=== PATIENT | female | born 1955 | race Caucasian/White ===

== ENCOUNTER 2019-09-15 14:53 | IRF | payer BC, SELFPAY ==
[2019-09-15 14:52] VITALS: BP 127/68; PULSE 74; RESP 18; TEMP 36.6; O2SAT 96
--- NOTE | 2019-09-15 15:24 | ADMGEN ---
This patient, Karely Perez, was admitted to [facility] Room 222-01. Patient/family oriented to hospital policies and general routines including ID bracelet, bed and alarms, visiting hours, pain management, procedures, bathroom and other care routines, personal items, smoking policy, room service/diet, and visiting hours. Valuables list has been completed. Information on how to activate the Rapid Response Team has been discussed. Patient/Family are encouraged to report perceived risks to care and to ask questions if they do not understand what they are told or what they should do.
[2019-09-15 16:09] VITALS: BMI 42.7
[2019-09-15] MEDS: POLYSACCHARIDE IRON COMPLEX 150 MG CAPSULE PO (17:10)
[2019-09-15] MEDS: levETIRAcetam 500 MG TABLET PO (21:12)
[2019-09-15] MEDS: SENNA/DOCUSATE SODIUM TABLET 2 TAB PO (21:12)
[2019-09-15] MEDS: MELATONIN 5 MG TABLET PO (21:12)
[2019-09-15] MEDS: DEXAMETHASONE 4 MG TABLET PO (21:12)
[2019-09-15 22:00] VITALS: BP 137/68; PULSE 68; RESP 18; TEMP 36.4; O2SAT 94
[2019-09-16 04:50] LABS: Basophils Percent Auto 0.4 % (0.2-1.2); Eosinophils Percent Auto 0.1 % (0-4.4); Hematocrit 40.5 % (37.0-47.0); Hemoglobin 13.4 g/dL (12.0-15.0); Immature Platelet Fraction Pct 4.2 % (0.9-11.2); Lymphocytes Absolute Auto 0.68 K/mm3 (0.9-3.2); Mean Corpuscular HGB Conc 33.1 g/dl (32-36); Mean Corpuscular Hemoglobin 26.3 pg (26-34); Mean Corpuscular Volume 79.6 fl (80-100); Mean Platelet Volume 9.7 fl (7.4-10.4); Monocytes Absolute Auto 0.5 K/mm3 (0.1-0.6); Monocytes Percent Auto 6.5 % (2.6-8.5); Neutrophils Absolute Auto 6.1 K/mm3 (1.3-6.7); Platelet Count Result 79 k/mm3 (150-375); Red Blood Count 5.09 M/mm3 (4.2-5.4); Red Cell Distribution Width 18.1 % (11.5-14.5); White Blood Count 7.6 K/mm3 (4.5-10.0)
[2019-09-16 05:10] LABS: Blood Urea Nitrogen 22 mg/dL (7-17); Calcium 8.3 mg/dL (8.4-10.2); Carbon Dioxide 22 mmol/L (22-30); Chloride 103 mmol/L (98-107); Estimated CRCL calculation 76 ml/min; Estimated Glomerular Filt Rate > 60; Glucose 133 mg/dL (65-105); Potassium 3.8 mmol/L (3.4-5.0); Sodium 134 mmol/L (137-145)
[2019-09-16] MEDS: DEXAMETHASONE 4 MG TABLET PO ×3 (05:57→21:26)
[2019-09-16] MEDS: LEVOTHYROXINE SODIUM 112 MCG TABLET PO (05:57)
[2019-09-16 06:00] VITALS: BP 130/79; PULSE 68; RESP 18; TEMP 36.6; O2SAT 97
[2019-09-16] MEDS: FAMOTIDINE 20 MG TABLET PO (08:26)
[2019-09-16] MEDS: OXYBUTYNIN CHLORIDE 5 MG TABLET PO (08:26)
[2019-09-16] MEDS: POLYSACCHARIDE IRON COMPLEX 150 MG CAPSULE PO ×2 (08:26→17:34)
[2019-09-16] MEDS: levETIRAcetam 500 MG TABLET PO ×2 (08:26→20:39)
[2019-09-16] MEDS: SENNA/DOCUSATE SODIUM TABLET 2 TAB PO ×2 (08:26→20:38)
[2019-09-16] MEDS: AMLODIPINE BESYLATE 5 MG TABLET PO (08:27)
[2019-09-16 14:00] VITALS: BP 127/81; PULSE 77; RESP 18; TEMP 37; O2SAT 97
--- NOTE | 2019-09-16 19:49 | REHAB_ITS ---
DATE OF SERVICE: 63 years old right-handed female has been admitted to acute rehab of [facility] with the primary rehab impairment category of brain dysfunction. 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 HISTORY OF PRESENT ILLNESS: 67 years old right-handed female with a past medical history of UTI, hypothyroidism, iron deficiency anemia, and glioblastoma multiforme of frontal lobe for which she is being followed by Dr. Estrada, underwent a right frontotemporal craniotomy for resection in June [address] Zayas at [facility]. Subsequently, she received radiation, Temodar treatment, which was completed in August 2018 and now she is on oral Temodar. Brain MRI done on September 02, 2019, was notable for the progressive glioblastoma multiforme at the prior site that is 2.3 cm x 2 cm x 1.9 cm, associated with mild vasogenic edema. She was admitted to [facility] and was underwent spinal MRI on 09/04, which revealed mild chronic compression fracture of T11 and mild thoracic disk degeneration without spinal canal stenosis or cord compression. Due to progressive disease shown on the MRI, she was transferred to [facility] on 09/07/2019, and was admitted for the worsening weakness and slurred speech in the setting of the progressive glioblastoma multiforme. Neurosurgical and radiation oncology consultations were obtained. Neurosurgical service started her on IV dexamethasone 4 mg q.6 hours and started the weaning process on 09/12/2019. She was discharged to rehab on 4 mg twice a day p.o. Oncology held Temodar during this admission. The Neuro-Oncology tumor Board met on 09/11/2019 and determined the MRI finding to be treatment effect at this time. They recommended followup MRI of the brain per brain tumor protocol and to follow up with the primary radiation oncologist Dr. Lora at [facility]. Chemical DVT prophylaxis was on hold for Neurosurgery. Physical examination continue to reveal weakness in both lower extremities with impaired balance and impaired gross motor control. Therapy was started on the acute care facility and patient was transferred to us from [facility] on 09/15/2019. The patient has had no major surgery in the 100 days prior to admission. She has had no falls in the past year and she has had no fall with injury in the past year as well. PAST MEDICAL HISTORY: 1. Glioblastoma multiforme of the frontal lobe. 2. Hypertension. 3. Hypercholesterolemia. 4. Thyroid disease. PAST SURGICAL HISTORY: 1. Breast biopsy. 2. Bilateral total hip arthroplasty in 2016 and 2018. 3. Right temporal tumor excision, craniotomy. SOCIAL HISTORY: Never been a smoker, never been drug user and never drinking alcohol. FAMILY HISTORY: Mother has a heart disease. Father has heart disease as well. PRIOR LEVEL OF FUNCTION: Eating was independent so as the oral care, toileting hygiene, shower, bathing, upper body, lower body, footwear, rolling left and right, sit to lying, lying to sitting, sit to stand, bed to chair, toilet transfer. She was previously ambulating independently with no device for 999 feet and she was previously using wheelchair not related. She was able to complete 13 steps independently. CURRENT LEVEL OF FUNCTION: She is independent in eating. She requires partial assistance for the oral care, toileting hygiene, bathing, shower, upper body, lower body, footwear, rolling left and right, sit to lying, lying to sitting, sit to stand, bed-chair to chair, toilet transfer. The patient has walked 50 feet partial assistance with rolling walker. Wheelchair was not tested and stairs were not tested. GOALS: Our therapist will evaluate the patient establish the goal, however, upon pre-
[2019-09-16] MEDS: MELATONIN 5 MG TABLET PO (20:39)
[2019-09-16 22:00] VITALS: BP 125/75; PULSE 88; RESP 18; TEMP 36.4; O2SAT 97
[2019-09-17] MEDS: DEXAMETHASONE 4 MG TABLET PO ×3 (06:01→21:11)
[2019-09-17] MEDS: LEVOTHYROXINE SODIUM 112 MCG TABLET PO (06:01)
[2019-09-17 06:42] VITALS: BP 136/76; PULSE 64; RESP 18; TEMP 36.4; O2SAT 98
[2019-09-17] MEDS: ONDANSETRON HCL ODT 4 MG TABLET 8 MG PO (09:33)
[2019-09-17] MEDS: OXYBUTYNIN CHLORIDE 5 MG TABLET PO (09:57)
[2019-09-17] MEDS: AMLODIPINE BESYLATE 5 MG TABLET PO (09:57)
[2019-09-17] MEDS: levETIRAcetam 500 MG TABLET PO ×2 (09:57→21:11)
[2019-09-17] MEDS: POLYSACCHARIDE IRON COMPLEX 150 MG CAPSULE PO ×2 (09:57→18:06)
[2019-09-17] MEDS: FAMOTIDINE 20 MG TABLET PO (09:57)
[2019-09-17 09:58] VITALS: BP 139/82; PULSE 85
--- NOTE | 2019-09-17 11:57 | WPDNEURORHBP ---
Subjective Date/time seen: 09/17/19 11:57 Review of Systems Review of Systems: All systems reviewed & are unremarkable except as noted in HPI and below Functional Status Ambulation Ability Ability to Ambulate 10 Feet: Contact Guard Ability to Ambulate 50 Feet With 2 Turns: Contact Guard Ability to Ambulate 150 Feet: Standby Assistance Ambulation Assistive Devices: Walker, Wheeled Transfers Ability Ability to Transfer In/Out of Chair: Standby Assistance Exam Const: General: cooperative, comfortable and no acute distress Nutritional Appearance: average body habitus Orientation/consciousness: patient oriented x3 HENMT: Head: normal to inspection (s/p craniotomy) Mouth: Yes Normal oral and palatal mucosa present Eyes: General: appearance normal, both eyes and all related structures Pupils: Equal, round and reactive pupils present EOM: EOMs intact bilaterally Neck: Neck: full ROM Resp: Auscultation: clear to auscultation bilaterally Cardio: Rate: regular rate Rhythm: regular rhythm Skin: Wounds: wounds noted Neuro: Cranial nerves: Yes CN's II-XII intact bilaterally Motor exam (neuro): 5/5 motor strength present throughout (4/5) Deep tendon reflexes (DTR's): Right triceps reflex intensity grade: 2+, Left triceps reflex intensity grade: 2+, Rt Biceps (C5, C6): 2+, Left biceps reflex intensity grade: 2+, Right brachioradialis reflex intensity grade: 2+, Left brachioradialis reflex intensity grade: 2+, Right patellar reflex intensity grade: 2+, Left patellar reflex intensity grade: 2+, Right ankle reflex intensity grade: 2+ and Left ankle reflex intensity grade: 2+ Objective Data Vital Signs Vital Signs: Vital Signs - 24 hr 09/16/19 14:00 09/16/19 22:00 09/17/19 06:42 Temperature 37.0 C 36.4 C 36.4 C Pulse Rate 77 88 64 Respiratory Rate 18 18 18 Blood Pressure 127/81 125/75 136/76 Pulse Oximetry 97 97 98 09/17/19 09:58 Temperature Pulse Rate 85 Respiratory Rate Blood Pressure 139/82 Pulse Oximetry Intake/Output Intake/Output: Intake & Output 09/14/19 09/15/19 09/16/19 09/17/19 23:59 23:59 23:59 23:59 Intake Total 120 780 120 Balance 120 780 120 Meds/Results Medications: Active Medications Generic Name Dose Route Start Last Admin Trade Name Ann PRN Reason Stop Dose Admin Acetaminophen 650 mg 09/15/19 15:29 Tylenol Tablet PO Q6H PRN Headache Amlodipine Besylate 5 mg 09/16/19 09:00 09/17/19 09:57 Norvasc PO 5 mg DAILY CHUY Administration Dexamethasone 4 mg 09/15/19 15:30 09/17/19 06:01 Dexamethasone Po PO 4 mg Q8HR CHUY Administration Famotidine 20 mg 09/16/19 09:00 09/17/19 09:57 Pepcid PO 20 mg DAILY CHUY Administration Levetiracetam 500 mg 09/15/19 21:00 09/17/19 09:57 Keppra Tablet PO 500 mg Q12HR CHUY Administration Levothyroxine Sodium 112 mcg 09/16/19 06:30 09/17/19 06:01 Synthroid PO 112 mcg DAILY@0630 CHUY Administration Melatonin 5 mg 09/15/19 21:00 09/16/19 20:39 Melatonin PO 5 mg HS CHUY Administration Ondansetron HCl 8 mg 09/15/19 16:05 09/17/19 09:33 Zofran Odt PO 8 mg Q8H PRN Administration Nausea Oxybutynin Chloride 5 mg 09/16/19 09:00 09/17/19 09:57 Ditropan PO 5 mg DAILY CHUY Administration Polyethylene Glycol 17 gm 09/15/19 15:29 Miralax PO DAILY PRN Constipation Polysaccharide Iron Complex 150 mg 09/15/19 17:00 09/17/19 09:57 Niferex-150 PO 150 mg BID CHUY Administration Senna/Docusate Sodium 2 tab 09/15/19 21:00 09/17/19 11:56 Senokot S PO Not Given Q12HR CHUY Progress Note: A&P Assessment and Plan (1) Paraparesis: Code(s): G82.20 - Paraplegia, unspecified Status: Acute (2) Accelerated hypertension: Code(s): I10 - Essential (primary) hypertension Status: Acute (3) Glioblastoma multiforme of frontal lobe: Code(s): C71.1 - Malignant neoplasm of frontal lobe S
[2019-09-17 14:00] VITALS: BP 119/72; PULSE 83; RESP 20; TEMP 36.7; O2SAT 97
[2019-09-17] MEDS: MELATONIN 5 MG TABLET PO (21:12)
[2019-09-17 21:18] VITALS: BP 142/82; PULSE 69; RESP 20; TEMP 36.2; O2SAT 96
[2019-09-18] MEDS: DEXAMETHASONE 4 MG TABLET PO ×3 (05:50→21:02)
[2019-09-18] MEDS: LEVOTHYROXINE SODIUM 112 MCG TABLET PO (05:50)
[2019-09-18 06:00] VITALS: BP 130/72; PULSE 79; RESP 20; TEMP 36.5; O2SAT 96
[2019-09-18] MEDS: AMLODIPINE BESYLATE 5 MG TABLET PO (10:08)
[2019-09-18] MEDS: SENNA/DOCUSATE SODIUM TABLET 2 TAB PO (10:08)
[2019-09-18] MEDS: OXYBUTYNIN CHLORIDE 5 MG TABLET PO (10:09)
[2019-09-18] MEDS: levETIRAcetam 500 MG TABLET PO ×2 (10:09→21:03)
[2019-09-18] MEDS: POLYSACCHARIDE IRON COMPLEX 150 MG CAPSULE PO ×2 (10:09→17:21)
[2019-09-18] MEDS: FAMOTIDINE 20 MG TABLET PO (10:09)
--- NOTE | 2019-09-18 11:26 | RPD ---
Addendum entered by Loida Maher 09/18/19 11:53: Physical Therapy: 5 days per week for 75 minutes. Occupational Therapy: 5 days per week for 75 minutes. Speech Therapy: 5 days per week for 30 minutes. Original Note: INDIVIDUALIZED PLAN OF CARE FOR Karley Perez Brief Synthesis of Pre-Admission Screen, Post-Admission Evaluation and Therapy Evaluations: The patient presents to rehab with progressive gliobatoma multiforme of frontal lobe. Comorbidities include hypertension, hypothyroidism, imbalance, anemia, and constipation. The patient needs physician monitoring and treatment of her disease process, neurology services, medical oversight, monitoring for adverse reactions to new medications, monitoring for infection, and dexamethasone taper. The patient requires nursing services for frequent neuro checks, anticoagulation therapy, medication management and education, pressure relief and skin care management, monitoring of labs, bowel and bladder training, and fall/safety precautions. Deficits include:ADLs, Balance, Endurance, Family Training/Education, Mobility, Pain Management, ROM, Safety, Speech, Strength, and Transfers Machine Spring Former/Case Management for: Discharge Planning and Patient/Family Counseling Physical Therapy: 5 days per week for 60 minutes. Treatments may include: Therapeutic Exercise, Gait Training, Neuromuscular Re-education, Transfer Training, Community Reintegration, Bed Mobility, Patient/Family Education, Wheelchair Mobility Group Therapy/Concurrent Therapy Rationales: -Improve attention span during functional activities in a distracted environment. -Enhance problem solving and/or adequate judgment skills during functional activities in a distracted environment. -Promote increased safety awareness in a distracted environment to reduce fall risk with functional tasks, transfers, and ambulation to allow a more safe, self-sufficient return to the home environment. -Improve dynamic balance skills to promote safety and independence with functional activities in a distracted environment for maximum gain. Occupational Therapy: 5 days per week for 60 minutes. Treatments may include: Therapeutic Exercise, Therapeutic Activity, Cognitive Training, Self-Care Transfer Training, Community Reintegration, Home Management, Patient/Family Education, Wheelchair Mobility Training, Energy Conservation Training Group Therapy/Concurrent Therapy Rationales: -Allow therapist to observe and teach generalization and carry-over of skills learned in individual therapy. -Enhance problem solving and sequencing skills during therapeutic activities in a distracted environment. -Promote increased safety awareness in a realistic setting to reduce fall risk with functional tasks due to visual and verbal distractions. -Increase functional level with ADLs, ADL transfers and use of adaptive equipment through therapeutic activities with others while promoting safety to allow a more safe, self-sufficient return home. Speech Therapy: 5 days per week for 30 minutes. Treatments may include: Dysphasia Therapy, Speech/Language/Communication Therapy, Cognitive Training, Patient/Family Education Group Therapy/Concurrent Therapy - Rationale: -Allow therapist to observe and teach generalization and carry-over of skills learned in individual therapy. -Improve comprehension skills with complex or abstract ideas through discussion in a realistic setting. -Enhance problem solving skills with complex issues during activities in a distracted environment. -Promote increased memory skills and concentration in a distracted environment for a safe transition home. -Improve attention and focus with language/communication skills in a realistic and supportive therapeutic setting. -Allow for practice of expression of basic needs and ideas through functional activities with others. Medical Prognosis: Good Anticipated Length of Stay: 10 days Rehab Goals: Eating Goal: 06-Independent Ora
[2019-09-18 13:19] VITALS: BMI 42.7
[2019-09-18 13:52] VITALS: BMI 42.7
[2019-09-18 13:53] VITALS: BMI 42.7
--- NOTE | 2019-09-18 13:56 | PCNSR ---
On 09/18/19, the student, Samia Jack, provided care and completed [facility] documentation on this patient. I have reviewed the student's documentation and agree with the findings.
[2019-09-18 14:00] VITALS: BP 138/72; PULSE 80; RESP 18; TEMP 36.2; O2SAT 96
--- NOTE | 2019-09-18 15:39 | PCPTNOTE ---
Karely Perez was evaluated for a wheeled walker on this date by this physical design engineer. The wheeled walker will resolve patient?s mobility deficits of left sided weakness and decreased balance. Patient can safely use the wheeled walker and will be used for ADL?s within home.
[2019-09-18] MEDS: MELATONIN 5 MG TABLET PO (21:04)
[2019-09-18 22:00] VITALS: BP 124/71; PULSE 61; RESP 16; TEMP 36.1; O2SAT 93
[2019-09-19 06:00] VITALS: BP 126/81; PULSE 78; RESP 20; TEMP 36.1; O2SAT 95
[2019-09-19] MEDS: ACETAMINOPHEN 325 MG TABLET 650 MG PO (06:03)
[2019-09-19] MEDS: LEVOTHYROXINE SODIUM 112 MCG TABLET PO (06:03)
[2019-09-19] MEDS: DEXAMETHASONE 4 MG TABLET PO ×3 (06:03→20:42)
[2019-09-19] MEDS: POLYSACCHARIDE IRON COMPLEX 150 MG CAPSULE PO ×2 (09:30→17:49)
[2019-09-19] MEDS: levETIRAcetam 500 MG TABLET PO ×2 (09:30→20:42)
[2019-09-19] MEDS: FAMOTIDINE 20 MG TABLET PO (09:30)
[2019-09-19] MEDS: AMLODIPINE BESYLATE 5 MG TABLET PO (09:30)
[2019-09-19] MEDS: SENNA/DOCUSATE SODIUM TABLET 2 TAB PO ×2 (09:30→20:42)
[2019-09-19] MEDS: OXYBUTYNIN CHLORIDE 5 MG TABLET PO (09:31)
--- NOTE | 2019-09-19 13:05 | WPDNEURORHBP ---
Subjective Date/time seen: 09/19/19 13:05 Interval history: patient has this fluent speech however able to communicate fairly well no headache nausea vomiting chest pain or shortness of breath. She is status post right-sided craniotomy for glioblastoma status post radiation treatment and also chemotherapy which has been on hold for right now she is receiving PT OT and speech she does have evidence of left-sided weakness along with some cognitive deficit Review of Systems Review of Systems: All systems reviewed & are unremarkable except as noted in HPI and below Functional Status Ambulation Ability Ability to Ambulate 10 Feet: Standby Assistance Ability to Ambulate 50 Feet With 2 Turns: Standby Assistance Ability to Ambulate 150 Feet: Standby Assistance Ambulation Assistive Devices: Walker, Wheeled Transfers Ability Ability to Transfer In/Out of Chair: Standby Assistance Exam Const: General: comfortable and no acute distress HENMT: Other: normal, craniotomy which was done in June of 2019 is clean and healthy Eyes: General: appearance normal, both eyes and all related structures Neck: Neck: supple and no JVD Resp: Effort & Inspection: normal respiratory effort Auscultation: clear to auscultation bilaterally Cardio: Rate: regular rate Rhythm: regular rhythm GI: GI Palp: Yes Soft to palpation Auscultation: normal bowel sounds Skin: General skin exam: normal color and no rashes or lesions noted Neuro: Other: patient is alert and oriented x3 has some speech disfluency and mild memory deficit otherwise fairly decent mental status, cranial nerve examination reveals slight flattening of the left nasolabial fold, she also has left-sided hemiparesis which is improving Extrem: General: normal to inspection Objective Data Vital Signs Vital Signs: Vital Signs - 24 hr 09/18/19 14:00 09/18/19 22:00 09/19/19 06:00 Temperature 36.2 C L 36.1 C L 36.1 C L Pulse Rate 80 61 78 Respiratory Rate 18 16 20 Blood Pressure 138/72 124/71 126/81 Pulse Oximetry 96 93 95 Intake/Output Intake/Output: Intake & Output 09/16/19 09/17/19 09/18/19 09/19/19 23:59 23:59 23:59 23:59 Intake Total 168 842 7085 360 Balance 759 401 8111 360 Meds/Results Medications: Active Medications Generic Name Dose Route Start Last Admin Trade Name Freq PRN Reason Stop Dose Admin Acetaminophen 650 mg 09/15/19 15:29 09/19/19 06:03 Tylenol Tablet PO 650 mg Q6H PRN Administration Headache Amlodipine Besylate 5 mg 09/16/19 09:00 09/19/19 09:30 Norvasc PO 5 mg DAILY CHUY Administration Dexamethasone 4 mg 09/15/19 15:30 09/19/19 06:03 Dexamethasone Po PO 4 mg Q8HR CHUY Administration Famotidine 20 mg 09/16/19 09:00 09/19/19 09:30 Pepcid PO 20 mg DAILY CHUY Administration Levetiracetam 500 mg 09/15/19 21:00 09/19/19 09:30 Keppra Tablet PO 500 mg Q12HR CHUY Administration Levothyroxine Sodium 112 mcg 09/16/19 06:30 09/19/19 06:03 Synthroid PO 112 mcg DAILY@0630 CHUY Administration Melatonin 5 mg 09/15/19 21:00 09/18/19 21:04 Melatonin PO 5 mg HS CHUY Administration Ondansetron HCl 8 mg 09/15/19 16:05 09/17/19 09:33 Zofran Odt PO 8 mg Q8H PRN Administration Nausea Oxybutynin Chloride 5 mg 09/16/19 09:00 09/19/19 09:31 Ditropan PO 5 mg DAILY CHUY Administration Polyethylene Glycol 17 gm 09/15/19 15:29 Miralax PO DAILY PRN Constipation Polysaccharide Iron Complex 150 mg 09/15/19 17:00 09/19/19 09:30 Niferex-150 PO 150 mg BID CHUY Administration Senna/Docusate Sodium 2 tab 09/15/19 21:00 09/19/19 09:30 Senokot S PO 2 tab Q12HR CHUY Administration Progress Note: A&P Assessment and Plan (1) Status post radiation therapy: Code(s): Z92.3 - Personal history of irradiation Status: Acute (2) History of craniotomy: Code(s): Z98.890 - Other specified postprocedural states
[2019-09-19 14:00] VITALS: BP 128/79; PULSE 70; RESP 16; TEMP 36.5; O2SAT 97
[2019-09-19] MEDS: MELATONIN 5 MG TABLET PO (20:42)
[2019-09-19 21:20] VITALS: BP 130/72; PULSE 72; RESP 20; TEMP 36.6; O2SAT 97
[2019-09-20 06:00] VITALS: BP 153/60; PULSE 87; RESP 20; TEMP 35.9; O2SAT 92
[2019-09-20] MEDS: LEVOTHYROXINE SODIUM 112 MCG TABLET PO (06:34)
[2019-09-20] MEDS: DEXAMETHASONE 4 MG TABLET PO ×3 (06:34→20:16)
[2019-09-20] MEDS: SENNA/DOCUSATE SODIUM TABLET 2 TAB PO ×2 (08:28→20:16)
[2019-09-20] MEDS: OXYBUTYNIN CHLORIDE 5 MG TABLET PO (08:29)
[2019-09-20] MEDS: AMLODIPINE BESYLATE 5 MG TABLET PO (08:29)
[2019-09-20] MEDS: POLYSACCHARIDE IRON COMPLEX 150 MG CAPSULE PO ×2 (08:29→17:03)
[2019-09-20] MEDS: FAMOTIDINE 20 MG TABLET PO (08:29)
[2019-09-20] MEDS: levETIRAcetam 500 MG TABLET PO ×2 (08:29→20:16)
--- NOTE | 2019-09-20 13:36 | WPDNEURORHBP ---
Subjective Date/time seen: 09/20/19 13:36 Interval history: Patient is doing fairly well no headache nausea vomiting chest pain or shortness of breath Her weakness is improving overall and she will be discharged tomorrow with the follow-up appointments with multiple physicians including her oncologist neurosurgeons and radiation oncologist Review of Systems Review of Systems: All systems reviewed & are unremarkable except as noted in HPI and below Functional Status Ambulation Ability Ability to Ambulate 10 Feet: Standby Assistance Ability to Ambulate 50 Feet With 2 Turns: Standby Assistance Ability to Ambulate 150 Feet: Standby Assistance Ambulation Assistive Devices: Walker, Wheeled Transfers Ability Ability to Transfer In/Out of Chair: Standby Assistance Exam Const: General: comfortable and no acute distress HENMT: Other: normal exam Eyes: General: appearance normal, both eyes and all related structures Neck: Neck: supple and no JVD Resp: Effort & Inspection: normal respiratory effort Auscultation: clear to auscultation bilaterally Cardio: Rate: regular rate Rhythm: regular rhythm GI: GI Palp: Yes Soft to palpation Auscultation: normal bowel sounds Skin: General skin exam: normal color and no rashes or lesions noted Neuro: Other: patient has some hesitancy in her speech and mild memory deficit however is functioning well as for as the mental status is concerned her left-sided weakness is also improving and she has done well in over rehab Extrem: General: normal to inspection Objective Data Vital Signs Vital Signs: Vital Signs - 24 hr 09/19/19 14:00 09/19/19 21:20 09/20/19 06:00 Temperature 36.5 C 36.6 C 35.9 C L Pulse Rate 70 72 87 Respiratory Rate 16 20 20 Blood Pressure 128/79 130/72 153/60 H Pulse Oximetry 97 97 92 Intake/Output Intake/Output: Intake & Output 09/17/19 09/18/19 09/19/19 09/20/19 23:59 23:59 23:59 23:59 Intake Total 660 1080 1320 480 Balance 660 1080 1320 480 Meds/Results Medications: Active Medications Generic Name Dose Route Start Last Admin Trade Name Freq PRN Reason Stop Dose Admin Acetaminophen 650 mg 09/15/19 15:29 09/19/19 06:03 Tylenol Tablet PO 650 mg Q6H PRN Administration Headache Amlodipine Besylate 5 mg 09/16/19 09:00 09/20/19 08:29 Norvasc PO 5 mg DAILY CHUY Administration Dexamethasone 4 mg 09/15/19 15:30 09/20/19 13:13 Dexamethasone Po PO 4 mg Q8HR CHUY Administration Famotidine 20 mg 09/16/19 09:00 09/20/19 08:29 Pepcid PO 20 mg DAILY CHUY Administration Levetiracetam 500 mg 09/15/19 21:00 09/20/19 08:29 Keppra Tablet PO 500 mg Q12HR CHUY Administration Levothyroxine Sodium 112 mcg 09/16/19 06:30 09/20/19 06:34 Synthroid PO 112 mcg DAILY@0630 CHUY Administration Melatonin 5 mg 09/15/19 21:00 09/19/19 20:42 Melatonin PO 5 mg HS CHUY Administration Ondansetron HCl 8 mg 09/15/19 16:05 09/17/19 09:33 Zofran Odt PO 8 mg Q8H PRN Administration Nausea Oxybutynin Chloride 5 mg 09/16/19 09:00 09/20/19 08:29 Ditropan PO 5 mg DAILY CHUY Administration Polyethylene Glycol 17 gm 09/15/19 15:29 Miralax PO DAILY PRN Constipation Polysaccharide Iron Complex 150 mg 09/15/19 17:00 09/20/19 08:29 Niferex-150 PO 150 mg BID CHUY Administration Senna/Docusate Sodium 2 tab 09/15/19 21:00 09/20/19 08:28 Senokot S PO 2 tab Q12HR CHUY Administration Progress Note: A&P Assessment and Plan (1) Status post radiation therapy: Code(s): Z92.3 - Personal history of irradiation Status: Acute (2) History of craniotomy: Code(s): Z98.890 - Other specified postprocedural states Status: Acute (3) Glioblastoma multiforme of frontal lobe: Code(s): C71.1 - Malignant neoplasm of frontal lobe Status: Acute (4) Accelerated hypertension: Code(s): I10 - Essential (primary) hyperte
[2019-09-20 14:00] VITALS: BP 132/68; PULSE 78; RESP 18; TEMP 36.6; O2SAT 97
[2019-09-20] MEDS: MELATONIN 5 MG TABLET PO (20:16)
[2019-09-20 22:00] VITALS: BP 132/74; PULSE 89; RESP 18; TEMP 36.8; O2SAT 95
[2019-09-21 06:00] VITALS: BP 138/78; PULSE 82; RESP 18; TEMP 37.1; O2SAT 96
[2019-09-21] MEDS: DEXAMETHASONE 4 MG TABLET PO ×3 (06:08→20:30)
[2019-09-21] MEDS: LEVOTHYROXINE SODIUM 112 MCG TABLET PO (06:08)
[2019-09-21] MEDS: levETIRAcetam 500 MG TABLET PO ×2 (08:21→20:29)
[2019-09-21] MEDS: SENNA/DOCUSATE SODIUM TABLET 2 TAB PO (08:22)
[2019-09-21] MEDS: OXYBUTYNIN CHLORIDE 5 MG TABLET PO (08:22)
[2019-09-21] MEDS: FAMOTIDINE 20 MG TABLET PO (08:22)
[2019-09-21] MEDS: POLYSACCHARIDE IRON COMPLEX 150 MG CAPSULE PO ×2 (08:22→17:10)
[2019-09-21] MEDS: AMLODIPINE BESYLATE 5 MG TABLET PO (08:22)
--- NOTE | 2019-09-21 11:59 | WPDNEURORHBP ---
Subjective Date/time seen: 09/21/19 11:59 Interval history: patient is here for the rehabilitation after having had radiation and chemo treatment for the glioblastoma for which she has had a craniotomy performed in June of 2019, patient's left-sided hemiparesis is improving his speech and language functions improving she denies any headache nausea vomiting chest pain or shortness of breath she has called her oncologist Dr. Estrada and has appointment next week as Wednesday, she is in process of getting appointment with the other physicians involved with her care for glioblastoma Review of Systems Review of Systems: All systems reviewed & are unremarkable except as noted in HPI and below Functional Status Ambulation Ability Ability to Ambulate 10 Feet: Standby Assistance Ability to Ambulate 50 Feet With 2 Turns: Standby Assistance Ability to Ambulate 150 Feet: Standby Assistance Ambulation Assistive Devices: Walker, Wheeled Transfers Ability Ability to Transfer In/Out of Chair: Standby Assistance Exam Const: General: comfortable and no acute distress HENMT: General nose exam: Normal nares present Mouth: Yes moist mucous membranes Eyes: General: appearance normal, both eyes and all related structures Neck: Neck: supple and no JVD Resp: Effort & Inspection: normal respiratory effort Auscultation: clear to auscultation bilaterally Cardio: Rate: regular rate Rhythm: regular rhythm GI: GI Palp: Yes Soft to palpation Percussion: Yes normal to percussion Auscultation: normal bowel sounds Skin: General skin exam: normal color and no rashes or lesions noted Neuro: Other: patient's mental status is fairly decent and she gives a very good history of her illness and also the treatment she has received, her weakness on the left side has much improved and Sineff discharge planning in the next 2 or 3 days is in progress Extrem: General: normal to inspection Objective Data Vital Signs Vital Signs: Vital Signs - 24 hr 09/20/19 14:00 09/20/19 22:00 09/21/19 06:00 Temperature 36.6 C 36.8 C 37.1 C Pulse Rate 78 89 82 Respiratory Rate 18 18 18 Blood Pressure 132/68 132/74 138/78 Pulse Oximetry 97 95 96 Intake/Output Intake/Output: Intake & Output 09/18/19 09/19/19 09/20/19 09/21/19 23:59 23:59 23:59 23:59 Intake Total 1080 1320 720 240 Balance 1080 1320 720 240 Meds/Results Medications: Active Medications Generic Name Dose Route Start Last Admin Trade Name Freq PRN Reason Stop Dose Admin Acetaminophen 650 mg 09/15/19 15:29 09/19/19 06:03 Tylenol Tablet PO 650 mg Q6H PRN Administration Headache Amlodipine Besylate 5 mg 09/16/19 09:00 09/21/19 08:22 Norvasc PO 5 mg DAILY CHUY Administration Dexamethasone 4 mg 09/15/19 15:30 09/21/19 06:08 Dexamethasone Po PO 4 mg Q8HR CHUY Administration Famotidine 20 mg 09/16/19 09:00 09/21/19 08:22 Pepcid PO 20 mg DAILY CHUY Administration Levetiracetam 500 mg 09/15/19 21:00 09/21/19 08:21 Keppra Tablet PO 500 mg Q12HR CHYU Administration Levothyroxine Sodium 112 mcg 09/16/19 06:30 09/21/19 06:08 Synthroid PO 112 mcg DAILY@0630 CHUY Administration Melatonin 5 mg 09/15/19 21:00 09/20/19 20:16 Melatonin PO 5 mg HS CHUY Administration Ondansetron HCl 8 mg 09/15/19 16:05 09/17/19 09:33 Zofran Odt PO 8 mg Q8H PRN Administration Nausea Oxybutynin Chloride 5 mg 09/16/19 09:00 09/21/19 08:22 Ditropan PO 5 mg DAILY CHUY Administration Polyethylene Glycol 17 gm 09/15/19 15:29 Miralax PO DAILY PRN Constipation Polysaccharide Iron Complex 150 mg 09/15/19 17:00 09/21/19 08:22 Niferex-150 PO 150 mg BID CHUY Administration Senna/Docusate Sodium 2 tab 09/21/19 09:01 Senokot S PO Q12HR PRN Constipation Progress Note: A&P Assessment and Plan (1) Status post radiation therapy: Code(s): Z92.3 - Personal history
[2019-09-21 14:00] VITALS: BP 138/64; PULSE 78; RESP 20; TEMP 36.5; O2SAT 98
[2019-09-21] MEDS: MELATONIN 5 MG TABLET PO (20:30)
[2019-09-21 22:00] VITALS: BP 153/78; PULSE 86; RESP 20; TEMP 33.1; O2SAT 97
[2019-09-22] MEDS: DEXAMETHASONE 4 MG TABLET PO ×3 (05:18→21:29)
[2019-09-22] MEDS: LEVOTHYROXINE SODIUM 112 MCG TABLET PO (05:19)
[2019-09-22 06:00] VITALS: BP 137/90; PULSE 72; RESP 18; TEMP 36.1; O2SAT 95
[2019-09-22] MEDS: FAMOTIDINE 20 MG TABLET PO (09:47)
[2019-09-22] MEDS: levETIRAcetam 500 MG TABLET PO ×2 (09:47→21:29)
[2019-09-22] MEDS: POLYSACCHARIDE IRON COMPLEX 150 MG CAPSULE PO ×2 (09:47→17:47)
[2019-09-22] MEDS: AMLODIPINE BESYLATE 5 MG TABLET PO (09:47)
[2019-09-22] MEDS: OXYBUTYNIN CHLORIDE 5 MG TABLET PO (09:48)
--- NOTE | 2019-09-22 13:10 | WPDNEURORHBP ---
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 and as per record in any event the patient is doing fairly well and going to be discharged over the weekend with a follow-up appointments with the oncology primary care physician neurosurgery and most likely radiation oncologist she denies any headache chest pain shortness of breath nausea vomiting double vision blurred vision Review of Systems Review of Systems: All systems reviewed & are unremarkable except as noted in HPI and below Functional Status Ambulation Ability Ability to Ambulate 10 Feet: Independent Ability to Ambulate 50 Feet With 2 Turns: Independent Ability to Ambulate 150 Feet: Independent Ambulation Assistive Devices: Walker, Wheeled Transfers Ability Ability to Transfer In/Out of Chair: Independent Exam Const: General: comfortable and no acute distress HENMT: General nose exam: Normal nares present Mouth: Yes moist mucous membranes Eyes: General: appearance normal, both eyes and all related structures Neck: Neck: supple and no JVD Resp: Effort & Inspection: normal respiratory effort Auscultation: clear to auscultation bilaterally Cardio: Rate: regular rate Rhythm: regular rhythm GI: GI Palp: Yes Soft to palpation Auscultation: normal bowel sounds Skin: General skin exam: normal color and no rashes or lesions noted Neuro: Other: slight dysarthria and mild short-term memory deficit otherwise fairly decent mental status examination the patient's weakness particularly in the left side has been improving and she is engage in therapy and quite up to it no new deficits are noted Extrem: General: normal to inspection Objective Data Vital Signs Vital Signs: Vital Signs - 24 hr 09/21/19 14:00 09/21/19 22:00 09/22/19 06:00 Temperature 36.5 C 33.1 C L 36.1 C L Pulse Rate 78 86 72 Respiratory Rate 20 20 18 Blood Pressure 138/64 153/78 H 137/90 Pulse Oximetry 98 97 95 Intake/Output Intake/Output: Intake & Output 09/19/19 09/20/19 09/21/19 09/22/19 23:59 23:59 23:59 23:59 Intake Total 1320 720 720 120 Balance 1320 720 720 120 Meds/Results Medications: Active Medications Generic Name Dose Route Start Last Admin Trade Name Freq PRN Reason Stop Dose Admin Acetaminophen 650 mg 09/15/19 15:29 09/19/19 06:03 Tylenol Tablet PO 650 mg Q6H PRN Administration Headache Amlodipine Besylate 5 mg 09/16/19 09:00 09/22/19 09:47 Norvasc PO 5 mg DAILY CHUY Administration Dexamethasone 4 mg 09/15/19 15:30 09/22/19 05:18 Dexamethasone Po PO 4 mg Q8HR CHUY Administration Famotidine 20 mg 09/16/19 09:00 09/22/19 09:47 Pepcid PO 20 mg DAILY CHUY Administration Levetiracetam 500 mg 09/15/19 21:00 09/22/19 09:47 Keppra Tablet PO 500 mg Q12HR CHUY Administration Levothyroxine Sodium 112 mcg 09/16/19 06:30 09/22/19 05:19 Synthroid PO 112 mcg DAILY@0630 CHUY Administration Melatonin 5 mg 09/15/19 21:00 09/21/19 20:30 Melatonin PO 5 mg HS [facility] Administration Ondansetron HCl 8 mg 09/15/19 16:05 09/17/19 09:33 Zofran Odt PO 8 mg Q8H PRN Administration Nausea Oxybutynin Chloride 5 mg 09/16/19 09:00 09/22/19 09:48 Ditropan PO 5 mg DAILY CHUY Administration Polyethylene Glycol 17 gm 09/15/19 15:29 Miralax PO DAILY PRN Constipation Polysaccharide Iron Complex 150 mg 09/15/19 17:00 09/22/19 09:47 Niferex-150 PO 150 mg BID CHUY Administration Senna/Docusate Sodium 2 tab 09/21/19 09:01 Senokot S PO Q12HR PRN Constipation Progress Note: A&P Assessment and Plan (1) Left hemiparesis: Code(s): G81.94 - Hemiplegia, unspecified affecting left nondominant side Status: Acute (2) Status post radiation therapy: Code(s): Z92.3 - Personal history of ir
--- NOTE | 2019-09-22 13:56 | PCDIET ---
Nutrition Follow-Up Complete: Nutrition Diagnosis: Unintended weight loss related to cancer treatments as evidence by reported weight loss of 50 pounds over the course of one year. Nutrition Goal: Patient will consume 100% of all meals Goal in progress. Patient consumed 75-100% of most meals, but not consistently at 100% of meals. Intakes appear to be meeting needs, however, and patient feels she is gaining weight. Last recorded weight is 99.4 kg. Recommend obtaining new weight. Bowel Motility: +BM on 09/21/19. Labs Reviewed: No new labs available. Meds Noted: Dexamethasone, Pepcid, Miralax, Nifirex-150 Additional Notes: Left buttock abrasion; no documented pressure sores. Will continue to monitor with same goal. Nutrition Monitoring and Evaluation: Will follow up in 7 days.
[2019-09-22 14:00] VITALS: BP 134/67; PULSE 57; RESP 18; TEMP 36.1; O2SAT 97
[2019-09-22] MEDS: MELATONIN 5 MG TABLET PO (21:29)
[2019-09-22 22:00] VITALS: BP 139/74; PULSE 84; RESP 18; TEMP 36.6; O2SAT 94
[2019-09-23 04:54] LABS: Basophils Percent Auto 0.2 % (0.2-1.2); Hematocrit 43.1 % (37.0-47.0); Hemoglobin 13.6 g/dL (12.0-15.0); Immature Granulocyte Absolute 0.43 K/mm3 (0.00-0.031); Immature Granulocyte Percent A 5.3 % (0-0.5); Lymphocytes Absolute Auto 0.45 K/mm3 (0.9-3.2); Lymphocytes Percent Auto 5.5 % (18.3-44.2); Mean Corpuscular HGB Conc 31.6 g/dl (32-36); Mean Corpuscular Hemoglobin 26.1 pg (26-34); Mean Corpuscular Volume 82.6 fl (80-100); Mean Platelet Volume 10.5 fl (7.4-10.4); Monocytes Absolute Auto 0.3 K/mm3 (0.1-0.6); Monocytes Percent Auto 3.7 % (2.6-8.5); Neutrophils Absolute Auto 6.9 K/mm3 (1.3-6.7); Neutrophils Percent Auto 85.3 % (45.5-73.1); Platelet Count Result 67 k/mm3 (150-375); Red Blood Count 5.22 M/mm3 (4.2-5.4); Red Cell Distribution Width 19.2 % (11.5-14.5); White Blood Count 8.1 K/mm3 (4.5-10.0)
[2019-09-23 05:19] LABS: Blood Urea Nitrogen 26 mg/dL (7-17); Calcium 8.2 mg/dL (8.4-10.2); Carbon Dioxide 24 mmol/L (22-30); Chloride 101 mmol/L (98-107); Estimated CRCL calculation 87 ml/min; Estimated Glomerular Filt Rate > 60; Glucose 171 mg/dL (65-105); Potassium 4.1 mmol/L (3.4-5.0); Sodium 133 mmol/L (137-145)
[2019-09-23 06:00] VITALS: BP 125/77; PULSE 73; RESP 18; TEMP 36.1; O2SAT 91
[2019-09-23] MEDS: LEVOTHYROXINE SODIUM 112 MCG TABLET PO (06:30)
[2019-09-23] MEDS: DEXAMETHASONE 4 MG TABLET PO ×3 (06:30→20:42)
[2019-09-23] MEDS: ACETAMINOPHEN 325 MG TABLET 650 MG PO (07:59)
[2019-09-23] MEDS: levETIRAcetam 500 MG TABLET PO ×2 (08:00→20:42)
[2019-09-23] MEDS: FAMOTIDINE 20 MG TABLET PO (08:01)
[2019-09-23] MEDS: OXYBUTYNIN CHLORIDE 5 MG TABLET PO (08:01)
[2019-09-23] MEDS: AMLODIPINE BESYLATE 5 MG TABLET PO (08:01)
[2019-09-23] MEDS: POLYSACCHARIDE IRON COMPLEX 150 MG CAPSULE PO ×2 (08:01→17:18)
[2019-09-23 14:00] VITALS: BP 136/80; PULSE 96; RESP 18; TEMP 36.1; O2SAT 95
--- NOTE | 2019-09-23 15:29 | WPDNEURORHBP ---
Subjective Date/time seen: 09/23/19 15:29 Interval history: patient is doing fairly well no headache nausea vomiting chest pain or shortness of breath quite ready to be going home tomorrow medications have been reconciled and she will have follow-up with the appropriate physicians Review of Systems Review of Systems: All systems reviewed & are unremarkable except as noted in HPI and below Functional Status Ambulation Ability Ability to Ambulate 10 Feet: Independent Ability to Ambulate 50 Feet With 2 Turns: Independent Ability to Ambulate 150 Feet: Independent Ambulation Assistive Devices: Walker, Wheeled Transfers Ability Ability to Transfer In/Out of Chair: Independent Exam Const: General: comfortable and no acute distress HENMT: General nose exam: Normal nares present Mouth: Yes moist mucous membranes Eyes: General: appearance normal, both eyes and all related structures Neck: Neck: supple and no JVD Resp: Effort & Inspection: normal respiratory effort Auscultation: clear to auscultation bilaterally Cardio: Rate: regular rate Rhythm: regular rhythm GI: GI Palp: Yes Soft to palpation Auscultation: normal bowel sounds Skin: General skin exam: normal color and no rashes or lesions noted Neuro: Other: patient's dysarthria has improved and weakness has improved and she is doing remarkably well and ready to be discharged tomorrow Extrem: General: normal to inspection Objective Data Vital Signs Vital Signs: Vital Signs - 24 hr 09/22/19 22:00 09/23/19 06:00 Temperature 36.6 C 36.1 C L Pulse Rate 84 73 Respiratory Rate 18 18 Blood Pressure 139/74 125/77 Pulse Oximetry 94 91 Intake/Output Intake/Output: Intake & Output 09/20/19 09/21/19 09/22/19 09/23/19 23:59 23:59 23:59 23:59 Intake Total 423 544 2857 400 Balance 985 283 1049 400 Meds/Results Medications: Active Medications Generic Name Dose Route Start Last Admin Trade Name Freq PRN Reason Stop Dose Admin Acetaminophen 650 mg 09/15/19 15:29 09/23/19 07:59 Tylenol Tablet PO 650 mg Q6H PRN Administration Headache Amlodipine Besylate 5 mg 09/16/19 09:00 09/23/19 08:01 Norvasc PO 5 mg DAILY [facility]UY Administration Dexamethasone 4 mg 09/15/19 15:30 09/23/19 13:41 Dexamethasone Po PO 4 mg Q8HR [facility]UY Administration Famotidine 20 mg 09/16/19 09:00 09/23/19 08:01 Pepcid PO 20 mg DAILY [facility] Administration Levetiracetam 500 mg 09/15/19 21:00 09/23/19 08:00 Keppra Tablet PO 500 mg Q12HR [facility]UY Administration Levothyroxine Sodium 112 mcg 09/16/19 06:30 09/23/19 06:30 Synthroid PO 112 mcg DAILY@0630 [facility] Administration Melatonin 5 mg 09/15/19 21:00 09/22/19 21:29 Melatonin PO 5 mg HS [facility] Administration Ondansetron HCl 8 mg 09/15/19 16:05 09/17/19 09:33 Zofran Odt PO 8 mg Q8H PRN Administration Nausea Oxybutynin Chloride 5 mg 09/16/19 09:00 09/23/19 08:01 Ditropan PO 5 mg DAILY [facility] Administration Polyethylene Glycol 17 gm 09/15/19 15:29 Miralax PO DAILY PRN Constipation Polysaccharide Iron Complex 150 mg 09/15/19 17:00 09/23/19 08:01 Niferex-150 PO 150 mg BID [facility] Administration Senna/Docusate Sodium 2 tab 09/21/19 09:01 Senokot S PO Q12HR PRN Constipation Labs Labs: Laboratory Results - last 24 hr 09/23/19 09/23/19 04:39 04:39 WBC 8.1 RBC 5.22 Hgb 13.6 Hct 43.1 MCV 82.6 MCH 26.1 MCHC 31.6 L RDW 19.2 H Plt Count 67 L MPV 10.5 H Immature Gran % (Auto) 5.3 H Neut % (Auto) 85.3 H Lymph % (Auto) 5.5 L Johnson % (Auto) 3.7 Eos % (Auto) 0.0 Baso % (Auto) 0.2 Lymph # (Auto) 0.45 L Johnson # (Auto) 0.3 Eos # (Auto) 0.0 Baso # (Auto) 0.0 Abs Immat Gran (auto) 0.43 H Absolute Neuts (auto) 6.9 H Absolute Nucleated RBC 0.0 Nucleated RBC % 0.0 % Immature Plt Fraction 3.0 Sodium 133 L Potassium 4.1 Chloride 101 Carbon Dioxide 2
[2019-09-23] MEDS: MELATONIN 5 MG TABLET PO (20:45)
[2019-09-23 22:00] VITALS: BP 125/71; PULSE 79; RESP 19; TEMP 36.5; O2SAT 94
[2019-09-24] MEDS: DEXAMETHASONE 4 MG TABLET PO ×3 (05:45→20:33)
[2019-09-24] MEDS: LEVOTHYROXINE SODIUM 112 MCG TABLET PO (05:45)
[2019-09-24 06:00] VITALS: BP 125/71; PULSE 79; RESP 19; TEMP 36.5; O2SAT 94
[2019-09-24] MEDS: AMLODIPINE BESYLATE 5 MG TABLET PO (08:32)
[2019-09-24] MEDS: FAMOTIDINE 20 MG TABLET PO (08:32)
[2019-09-24] MEDS: levETIRAcetam 500 MG TABLET PO ×2 (08:32→20:33)
[2019-09-24] MEDS: POLYSACCHARIDE IRON COMPLEX 150 MG CAPSULE PO ×2 (08:32→17:51)
[2019-09-24] MEDS: OXYBUTYNIN CHLORIDE 5 MG TABLET PO (08:32)
[2019-09-24 14:00] VITALS: BP 143/87; PULSE 96; RESP 16; TEMP 36.4; O2SAT 94
--- NOTE | 2019-09-24 14:12 | WPDNEURORHBP ---
Subjective Date/time seen: 09/24/19 14:12 Interval history: this 63-year-old woman was recuperating here on the acute rehab for glioblastoma multiforme status post craniotomy in the recent past followed by radiation treatment and also chemotherapy According to the records available the patient may have radiation necrosis rather than reoccurrence of the glioblastoma She was tentatively to be discharged today however the family is not agreeable and telling me that they cannot take care of herself and we have to make a difference arrangement and that it will need to be done tomorrow with the help of our child day care teacher as I really cannot discharge her without proper placement Patient her self feels comfortable going home by herself but I will take family's word about the current situation Review of Systems Constitutional: Constitutional: Reports no additional constitutional complaints Eyes: Eyes: Reports no additional eye complaints ENT: Reports system reviewed and no additional complaints, except as documented Cardiovascular: Cardiovascular: Reports no additional cardiovascular complaints Respiratory: Respiratory: Reports no additional respiratory complaints Gastrointestinal: Gastrointestinal: Reports no additional gastrointestinal complaints Genitourinary: Genitourinary: Reports no additional female genitourinary complaints Musculoskeletal: Musculoskeletal: Reports no additional musculoskeletal complaints Integumentary/Breasts: Skin/Breast: Reports system reviewed and no additional complaints, except as docu Neurologic: Comments: patient's mental status is fairly decent her dysarthria has improved likewise the hemiparesis has significantly improved however on questioning there are some deficits which the family might be able to pick it up to the extend that she will not be able to take care of herself at home without any supervision Psychiatric: Psychiatric: Reports no additional psychiatric complaints Functional Status Ambulation Ability Ability to Ambulate 10 Feet: Independent Ability to Ambulate 50 Feet With 2 Turns: Independent Ability to Ambulate 150 Feet: Independent Ambulation Assistive Devices: Walker, Wheeled Transfers Ability Ability to Transfer In/Out of Chair: Independent Exam Const: General: comfortable and no acute distress HENMT: General nose exam: Normal nares present Mouth: Yes moist mucous membranes Eyes: General: appearance normal, both eyes and all related structures Neck: Neck: supple and no JVD Resp: Effort & Inspection: normal respiratory effort Auscultation: clear to auscultation bilaterally Cardio: Rate: regular rate Rhythm: regular rhythm GI: GI Palp: Yes Soft to palpation Auscultation: normal bowel sounds Skin: General skin exam: normal color and no rashes or lesions noted Neuro: Other: patient's mental status fairly decent except short-term memory deficit dysarthria has significantly improved and the hemiparesis has improved and she has been walking quite a bit of course with a walker Her current examination remains quite good and visual acuity remains stable Objective Data Vital Signs Vital Signs: Vital Signs - 24 hr 09/23/19 22:00 09/24/19 06:00 Temperature 36.5 C 36.5 C Pulse Rate 79 79 Respiratory Rate 19 19 Blood Pressure 125/71 125/71 Pulse Oximetry 94 94 Intake/Output Intake/Output: Intake & Output 09/21/19 09/22/19 09/23/19 09/24/19 23:59 23:59 23:59 23:59 Intake Total 720 1080 600 720 Balance 720 1080 600 720 Meds/Results Medications: Active Medications Generic Name Dose Route Start Last Admin Trade Name Freq PRN Reason Stop Dose Admin Acetaminophen 650 mg 09/15/19 15:29 09/23/19 07:59 Tylenol Tablet PO 650 mg Q6H PRN Administration Headache Amlodipine Besylate 5 mg 09/16/19 09:00 09/24/19 08:32 Norvasc PO 5 mg DAILY [facility]UY Administration Dexamethasone 4 mg 09/15/19 15:30 09/24/19 05:45 Dexamethasone Po PO 4
[2019-09-24] MEDS: MELATONIN 5 MG TABLET PO (20:33)
[2019-09-24 22:00] VITALS: BP 123/71; PULSE 80; RESP 18; TEMP 36.3; O2SAT 93
[2019-09-25] MEDS: LEVOTHYROXINE SODIUM 112 MCG TABLET PO (05:35)
[2019-09-25] MEDS: DEXAMETHASONE 4 MG TABLET PO ×2 (05:35→13:36)
[2019-09-25 06:00] VITALS: BP 138/80; PULSE 70; RESP 19; TEMP 36.4; O2SAT 95
[2019-09-25] MEDS: AMLODIPINE BESYLATE 5 MG TABLET PO (10:21)
[2019-09-25] MEDS: levETIRAcetam 500 MG TABLET PO (10:21)
[2019-09-25] MEDS: FAMOTIDINE 20 MG TABLET PO (10:21)
[2019-09-25] MEDS: OXYBUTYNIN CHLORIDE 5 MG TABLET PO (10:22)
[2019-09-25] MEDS: POLYSACCHARIDE IRON COMPLEX 150 MG CAPSULE PO (10:22)
[2019-09-25 11:05] VITALS: PULSE 70; RESP 19; O2SAT 95
--- NOTE | 2019-09-25 15:01 | PC.NURSE ---
Discharge meds called into [facility] in [place], [place]. Per Dr. Hillman.
--- NOTE | 2019-09-28 11:13 | DS_ITS ---
DATE OF DISCHARGE: 09/25/2019 DISCHARGE ACUTE REHAB DIAGNOSIS: Primary rehab impairment category of brain dysfunction with nontraumatic and the etiological diagnosis of progressive glioblastoma multiforme of frontal lobe. DISCHARGE ACTIVE COMORBID CONDITIONS: Hypertension, hypercholesterolemia, and thyroid disease. REASON FOR ADMISSION: A 63 years old right-handed female with past medical history of UTI, hypothyroidism, iron deficiency anemia, and glioblastoma multiforme of frontal lobe, underwent right frontal temporal craniotomy for resection in June [address] Zayas at [facility]. Subsequently, she received radiation treatment completed in August 2018, and placed on oral Temodar. Brain MRI done on September 02, 2019, was notable for the progressive glioblastoma multiforme at the prior site with 2.3 cm x 2 cm x 1.9 cm, along with mild vasogenic edema, admitted to [facility], underwent spinal MRI on September 04, 2019, which revealed chronic compression fracture of T11 and mild thoracic disk degeneration without spinal column stenosis or cord compression. For that progressive disease, she was transferred to [facility] on September 07, 2019, and was admitted for worsening weakness and slurred speech in setting of the progressive glioblastoma multiforme. All the consults were obtained. She was started on dexamethasone intravenously 4 mg q.6 hours with weaning process. Discharged to rehab on 4 mg twice a day. Oncology held Temodar during the admission that Neuro-Oncology board met on September 11, 2019, and determined the MRI finding to be treatment effect of the previous intervention. Recommended only followup MRI of the brain per brain tumor protocol and to follow with the primary radiation oncologist, Dr. Lora in [place]. Chemical DVT prophylaxis was on hold for Neurosurgery. Physical exam continued to reveal weakness in both lower extremities with gait dysfunction, impaired motor control. She was started on the acute care facility on physical therapy and was transferred here for the further ongoing treatment. LEVEL OF FUNCTION AT THE TIME OF ADMISSION: The patient required setup for eating, supervision for oral hygiene and toileting, partial assistance for bathing, supervision for upper body dressing, partial assistance for lower body dressing, supervision for footwear, rolling in bed, sit to lying, lying to sitting was partial assistance so as sit to stand, chair transfer, and toilet transfer. She required only supervision for car transfer, walking 10 feet, 50 feet, 150 feet, and 10 feet on uneven surfaces, 4 steps, 12 steps, and picking up objects, but required partial assistance for curb or step, wheelchair for 50 feet or 150 feet. ANCIPATED REHAB GOAL AT THE TIME OF ADMISSION: Were to make a completely independent in all the modalities. LEVEL OF FUNCTION AT THE TIME OF DISCHARGE: The patient became independent in most of the modalities except she required setup for the upper body dressing, lower body dressing, and partial assistance for the wheelchair for 50 feet and 150 feet. HOSPITAL COURSE: During the hospitalization, she was actively involved in the physical therapy and occupational therapy. No other consultants were involved throughout the hospitalization or on the floor right now. She was able to ambulate up to 150 feet independently using the wheeled walker, transfer in and out of chair independently. General physical examination remained stable and so as the neurological examination and vital signs. DISCHARGE: She was instructed to may shower. No driving. Diet as tolerated. DISCHARGE MEDICATIONS: Included 1. Tylenol 650 mg q.6 hours. 2. Amlodipine 5 mg daily. 3. Dexamethasone 4 mg q.8 hours. 4. Famotidine 20 mg daily. 5. Levetiracetam 500 mg q.12 hours. 6. Levothyr
== END 2019-09-25 13:02 | disposition home health service (06) | DRG 949 ==
PROVIDERS: Admitting Provider Psychiatry & Neurology Neurology; Visit Provider Psychiatry & Neurology Neurology
DX: Z48.811 Encounter for surgical aftercare following surgery on the nervous system (principal); C71.1 Malignant neoplasm of frontal lobe; G81.94 Hemiplegia, unspecified affecting left nondominant side; D50.9 Iron deficiency anemia, unspecified; E03.9 Hypothyroidism, unspecified; E78.00 Pure hypercholesterolemia, unspecified; I10 Essential (primary) hypertension; M48.54XD Collapsed vertebra, not elsewhere classified, thoracic region, subsequent encounter for fracture with routine healing; M51.34 Other intervertebral disc degeneration, thoracic region; R41.89 Other symptoms and signs involving cognitive functions and awareness; R47.1 Dysarthria and anarthria; R26.9 Unspecified abnormalities of gait and mobility; Z92.3 Personal history of irradiation; Z96.643 Presence of artificial hip joint, bilateral
CPT/HCPCS: 36415; 80048; 85025; 85055; 87081; 92507; 92523; 97110; 97116; 97129; 97130; 97150; 97161; 97166; 97530; 97535; A9270; J8540